=== PATIENT | female | born 1960 | race Caucasian/White ===

== ENCOUNTER 2019-12-26 20:23 | Inpatient (IN) | payer MEDICARE, MEDICAID ==
[~2019-12-26] VITALS: Ht 157.5 cm; Wt 98.0 kg
[2019-12-26] MEDS ORDERED: DIPH,PERTUSS(ACELL),TET VAC/PF 0.5 ML IM-VACC ONE ×2 (21:30→21:46)
[2019-12-26] MEDS ORDERED: SODIUM CHLORIDE FLUSH 10ML SYR IVF ONE (22:00)
[2019-12-26] MEDS ORDERED: AMPICILLIN/SULBACTAM 3 GM in SODIUM CHLORIDE 0.9% 100 ML IV ONE (22:00)
[2019-12-26 22:06] LABS: MEAN CORPUSCULAR HEMOGLOBIN 32.6 pg (27.0-34.8); MEAN CORPUSCULAR HGB CONC 33.6 g/dL (32.4-35.8); MEAN CORPUSCULAR VOLUME 97.3 fL (80-100); MEAN PLATELET VOLUME 9.5 fL (7.4-10.4); PLATELET COUNT 270 x10^3/uL (130-400); RED BLOOD COUNT 3.69 x10^6/uL (3.82-5.3); RED CELL DISTRIBUTION WIDTH 14.8 % (9.6-15.2)
[2019-12-26 22:16] LABS: ALANINE AMINOTRANSFERASE 18 U/L (12-78); ALBUMIN 3.3 g/dL (3.4-5.0); ANION GAP 6 mmol/L (5-15); CHLORIDE 107 mmol/L (98-107); CREATININE 0.89 mg/dL (0.55-1.02)
[2019-12-26] MEDS ORDERED: HYDROmorphone 1 MG/ML, 1ML INJ ONE (22:17)
[2019-12-26] MEDS ORDERED: ONDANSETRON 2MG/ML, 2ML ONE (22:17)
[2019-12-26 22:19] LABS: ALKALINE PHOSPHATASE 112 U/L (45-117); BILIRUBIN,TOTAL 0.4 mg/dL (0.2-1.0); TOTAL PROTEIN 7.3 g/dL (6.4-8.2)
[2019-12-26] MEDS ORDERED: ONDANSETRON 2MG/ML, 2ML IVPush ONE (22:30)
[2019-12-26] MEDS ORDERED: HYDROmorphone 1 MG/ML, 1ML INJ IV ONE (22:30)
[2019-12-26 22:31] LABS: BASOPHILS # (AUTO) 0.04 x10^3/uL (0-0.1); BASOPHILS % (AUTO) 0 % (0-1); EOSINOPHILS # (AUTO) 0.01 x10^3/uL (0-0.4); EOSINOPHILS % (AUTO) 0 % (1-7); LYMPHOCYTES # (AUTO) 2.32 x10^3/uL (1-3.4); LYMPHOCYTES % (AUTO) 13 % (22-44); MD SCAN; MONOCYTES # (AUTO) 1.35 x10^3/uL (0.2-0.8); MONOCYTES % (AUTO) 7 % (2-9); NEUTROPHILS # (AUTO) 14.65 x10^3/uL (1.8-6.8); NEUTROPHILS % (AUTO) 80 % (42-75)
--- NOTE | 2019-12-26 23:35 | NUR ---
Shantal Maynard, pts emergency contact - [phone]
[2019-12-26] MEDS ORDERED: OMNIPAQUE 350 MG/ML, 100ML BOTTLE ONE (23:44)
[2019-12-27] MEDS ORDERED: HYDROmorphone 1 MG/ML, 1ML INJ ONE (00:20)
[2019-12-27] MEDS ORDERED: HYDROmorphone 1 MG/ML, 1ML INJ IV ONE (00:30)
[2019-12-27] MEDS ORDERED: GABAPENTIN 300 MG CAPSULE PO PRN (01:30)
[2019-12-27] MEDS ORDERED: hydrALAzine 20 MG/ML, 1ML IVPush PRN (01:30)
[2019-12-27] MEDS ORDERED: ACETAMINOPHEN 325 MG TABLET PO PRN ×2 (01:30→07:30)
[2019-12-27] MEDS ORDERED: POTASSIUM CHLORIDE 20 MEQ TAB.ER.PRT PO ONE (01:30)
[2019-12-27] MEDS ORDERED: VANCOMYCIN 1,200 MG in SODIUM CHLORIDE 0.9% 250 ML IV ONE (01:30)
[2019-12-27] MEDS ORDERED: VANCOMYCIN PER PHARMACY MC PRN ×2 (01:30)
[2019-12-27] MEDS ORDERED: TRAZODONE 50MG TABLET PO PRN (01:30)
[2019-12-27] MEDS ORDERED: ONDANSETRON 2MG/ML, 2ML IVPush PRN ×2 (01:30→07:30)
--- NOTE | 2019-12-27 01:38 | NUR ---
Report called to farida flores to assume care upon transfer to [facility]
[2019-12-27 01:45] VITALS: BP 136/87
[2019-12-27] MEDS ORDERED: ACYC-114 PO (02:01)
[2019-12-27] MEDS ORDERED: ROSU40TA PO (02:01)
[2019-12-27] MEDS ORDERED: SERT100T PO (02:01)
[2019-12-27] MEDS ORDERED: CLON1TAB PO (02:01)
[2019-12-27] MEDS: morphine SULFATE 10 MG/ML, 1ML IVPush PRN ×4 (02:26→10:13)
[2019-12-27] MEDS ORDERED: PHARMACOKINETIC MONITORING MC PRN (02:30)
[2019-12-27] MEDS ORDERED: PHARMACOKINETIC CONSULTATION MC ONE (02:30)
[2019-12-27] MEDS: AMPICILLIN/SULBACTAM 3 GM in SODIUM CHLORIDE 0.9% 100 ML IV SCH ×4 (04:10→21:33)
[2019-12-27] MEDS: LACTATED RINGERS 1,000 ML IV SCH ×2 (04:44→21:35)
[2019-12-27 06:52] LABS: BASOPHILS # (AUTO) 0.06 x10^3/uL (0-0.1); BASOPHILS % (AUTO) 0 % (0-1); EOSINOPHILS # (AUTO) 0.08 x10^3/uL (0-0.4); EOSINOPHILS % (AUTO) 1 % (1-7); LYMPHOCYTES # (AUTO) 3.67 x10^3/uL (1-3.4); LYMPHOCYTES % (AUTO) 22 % (22-44); MD NO; MEAN CORPUSCULAR HEMOGLOBIN 32.8 pg (27.0-34.8); MEAN CORPUSCULAR HGB CONC 33.7 g/dL (32.4-35.8); MEAN CORPUSCULAR VOLUME 97.4 fL (80-100); MEAN PLATELET VOLUME 9.5 fL (7.4-10.4); MONOCYTES # (AUTO) 1.21 x10^3/uL (0.2-0.8); MONOCYTES % (AUTO) 7 % (2-9); NEUTROPHILS # (AUTO) 12.02 x10^3/uL (1.8-6.8); NEUTROPHILS % (AUTO) 71 % (42-75); PLATELET COUNT 244 x10^3/uL (130-400); RED CELL DISTRIBUTION WIDTH 15.3 % (9.6-15.2)
[2019-12-27 06:58] LABS: ANION GAP 5 mmol/L (5-15); CALCIUM 8.6 mg/dL (8.5-10.1); CHLORIDE 108 mmol/L (98-107); CREATININE 0.69 mg/dL (0.55-1.02)
[2019-12-27 07:13] VITALS: BP 110/67
[2019-12-27] MEDS ORDERED: OXYcodone 5 MG/5 ML ORAL.SOL UDC PO PRN (07:30)
[2019-12-27] MEDS ORDERED: hydrALAzine 20 MG/ML, 1ML IV PRN (07:30)
[2019-12-27] MEDS ORDERED: EPHEDRINE 50 MG/ML, 1ML IVPush PRN (07:30)
[2019-12-27] MEDS ORDERED: LABETALOL 5MG/ML, 20ML IV PRN (07:30)
[2019-12-27] MEDS ORDERED: PROMETHAZINE 25 MG/ML, 1ML IVPush PRN (07:30)
[2019-12-27] MEDS: SERTRALINE 100MG TABLET PO SCH ×2 (09:00→21:33)
[2019-12-27] MEDS: SENNA/DOCUSATE TABLET PO SCH (09:00)
[2019-12-27] MEDS: ACYCLOVIR 800 MG TABLET PO SCH ×2 (09:00→21:33)
[2019-12-27] MEDS ORDERED: MIDAZOLAM 1 MG/ML, 2ML ONE (10:14)
[2019-12-27] MEDS ORDERED: FENTANYL PF 250 MCG/5ML ONE (10:14)
[2019-12-27 14:00] VITALS: BP 93/68
[2019-12-27] MEDS ORDERED: EPHEDRINE 50 MG/ML, 1ML ONE (14:00)
[2019-12-27] MEDS ORDERED: KETOROLAC 30 MG/1 ML ONE (14:16)
[2019-12-27] MEDS ORDERED: LIDOCAINE-MPF 2% ,5ML ONE (14:16)
[2019-12-27] MEDS ORDERED: PROPOFOL 10 MG/ML, 20ML ONE (14:18)
[2019-12-27] MEDS ORDERED: DEXAMETHASONE 4 MG/ML, 1ML ONE (14:18)
[2019-12-27] MEDS ORDERED: ONDANSETRON 2MG/ML, 2ML ONE (14:18)
[2019-12-27] MEDS ORDERED: ACETAMINOPHEN 650 MG/20.3 ML UDC ONE (15:08)
[2019-12-27] MEDS ORDERED: OXYcodone 5 MG/5 ML ORAL.SOL UDC ONE (15:08)
[2019-12-27] MEDS ORDERED: HYDROmorphone 2 MG/ML, 1ML ONE (15:08)
[2019-12-27] MEDS ORDERED: FENTANYL PF 100 MCG/2ML ONE (15:08)
[2019-12-27] MEDS: FENTANYL PF 100 MCG/2ML IV PRN ×2 (15:20→15:30)
[2019-12-27] MEDS: HYDROmorphone 1 MG/ML, 1ML INJ IVPush PRN ×2 (15:25→15:56)
[2019-12-27] MEDS ORDERED: POTASSIUM CHLORIDE 20 MEQ TAB.ER.PRT PO SCH (17:00)
[2019-12-27] MEDS ORDERED: HYDROmorphone 1 MG/ML, 1ML INJ IV PRN (17:00)
[2019-12-27] MEDS: VANCOMYCIN PMX 1GM/200ML 200 ML IVPB SCH (17:53)
[2019-12-27] MEDS: NICOTINE 21 MG/24 HR PATCH.TD24 TD SCH (17:54)
[2019-12-27 20:04] VITALS: BP 94/55
[2019-12-27] MEDS: OXYcodone/APAP 10/325MG TABLET PO PRN (21:33)
[2019-12-27] MEDS: ATORVASTATIN 80 MG TABLET PO SCH (21:37)
[2019-12-28] VITALS (7 sets, daily range): BP systolic 92–109; BP diastolic 51–66
[2019-12-28] MEDS: OXYcodone/APAP 10/325MG TABLET PO PRN (02:37)
[2019-12-28] MEDS: AMPICILLIN/SULBACTAM 3 GM in SODIUM CHLORIDE 0.9% 100 ML IV SCH ×4 (04:07→23:34)
[2019-12-28] MEDS: morphine SULFATE 10 MG/ML, 1ML IVPush PRN (05:38)
[2019-12-28] MEDS: VANCOMYCIN PMX 1GM/200ML 200 ML IVPB SCH ×2 (05:38→22:02)
[2019-12-28 06:11] LABS: CHLORIDE 108 mmol/L (98-107)
[2019-12-28 06:20] LABS: BASOPHILS % (AUTO) 0 % (0-1); EOSINOPHILS % (AUTO) 0 % (1-7); LYMPHOCYTES # (AUTO) 1.36 x10^3/uL (1-3.4); LYMPHOCYTES % (AUTO) 8 % (22-44); MD NO; MEAN CORPUSCULAR HEMOGLOBIN 32.7 pg (27.0-34.8); MEAN CORPUSCULAR HGB CONC 33.2 g/dL (32.4-35.8); MEAN CORPUSCULAR VOLUME 98.4 fL (80-100); MEAN PLATELET VOLUME 9.7 fL (7.4-10.4); MONOCYTES # (AUTO) 0.92 x10^3/uL (0.2-0.8); MONOCYTES % (AUTO) 6 % (2-9); NEUTROPHILS # (AUTO) 14.26 x10^3/uL (1.8-6.8); NEUTROPHILS % (AUTO) 86 % (42-75); PLATELET COUNT 200 x10^3/uL (130-400); RED BLOOD COUNT 2.71 x10^6/uL (3.82-5.3); RED CELL DISTRIBUTION WIDTH 15.1 % (9.6-15.2)
[2019-12-28 06:22] LABS: ALANINE AMINOTRANSFERASE 21 U/L (12-78); ALBUMIN 2.6 g/dL (3.4-5.0); ALKALINE PHOSPHATASE 86 U/L (45-117); ANION GAP 5 mmol/L (5-15); BILIRUBIN,TOTAL 0.3 mg/dL (0.2-1.0); CALCIUM 8.1 mg/dL (8.5-10.1); CREATININE 0.64 mg/dL (0.55-1.02)
[2019-12-28] MEDS ORDERED: OXYcodone/APAP 10/325MG TABLET PO PRN (09:00)
[2019-12-28] MEDS: ACYCLOVIR 800 MG TABLET PO SCH ×2 (09:00→09:31)
[2019-12-28] MEDS: SENNA/DOCUSATE TABLET PO SCH (09:00)
[2019-12-28] MEDS: SERTRALINE 100MG TABLET PO SCH ×2 (09:31→20:43)
[2019-12-28] MEDS ORDERED: OXYcodone IR 5MG TABLET PO PRN (12:30)
[2019-12-28] MEDS ORDERED: OXYcodone 5 MG/5 ML ORAL.SOL UDC PO PRN (12:33)
[2019-12-28] MEDS ORDERED: OMEP40CA42 PO (13:43)
[2019-12-28] MEDS ORDERED: AMIT100T PO (13:43)
[2019-12-28] MEDS ORDERED: DICY10CA3 PO (13:43)
[2019-12-28] MEDS ORDERED: CLON1TAB PO (13:43)
[2019-12-28] MEDS ORDERED: FLUT12AE INH (13:43)
[2019-12-28] MEDS: ACETAMINOPHEN 650 MG/20.3 ML UDC PO PRN (14:02)
[2019-12-28] MEDS: OXYcodone 5 MG/5 ML ORAL.SOL UDC PO PRN ×2 (16:05→22:07)
[2019-12-28] MEDS: NICOTINE 21 MG/24 HR PATCH.TD24 TD SCH (18:30)
[2019-12-28] MEDS: ATORVASTATIN 80 MG TABLET PO SCH (20:43)
[2019-12-28] MEDS: AMITRIPTYLINE 50 MG TABLET PO SCH (20:44)
[2019-12-28] MEDS: FLUTICASONE NASAL SPRAY 16GM NAS SCH (20:44)
[2019-12-28] MEDS: OMEPRAZOLE 20 MG CAPSULE.DR PO SCH (20:44)
[2019-12-28] MEDS: ACYCLOVIR 200 MG/5 ML ORAL SUSP PO SCH (20:44)
[2019-12-29] VITALS (9 sets, daily range): BP systolic 105–138; BP diastolic 62–80
[2019-12-29] MEDS: AMPICILLIN/SULBACTAM 3 GM in SODIUM CHLORIDE 0.9% 100 ML IV SCH ×3 (05:12→18:23)
[2019-12-29] MEDS: OXYcodone 5 MG/5 ML ORAL.SOL UDC PO PRN ×3 (05:43→20:53)
[2019-12-29 05:56] LABS: HCT (SEDRATE) 24.3 % (34.6-47.8)
[2019-12-29 06:08] LABS: CHLORIDE 110 mmol/L (98-107)
[2019-12-29 06:10] LABS: BASOPHILS # (AUTO) 0.04 x10^3/uL (0-0.1); BASOPHILS % (AUTO) 0 % (0-1); EOSINOPHILS # (AUTO) 0.07 x10^3/uL (0-0.4); EOSINOPHILS % (AUTO) 1 % (1-7); LYMPHOCYTES # (AUTO) 3.11 x10^3/uL (1-3.4); LYMPHOCYTES % (AUTO) 25 % (22-44); MD NO; MEAN CORPUSCULAR HEMOGLOBIN 32.9 pg (27.0-34.8); MEAN CORPUSCULAR HGB CONC 33.6 g/dL (32.4-35.8); MEAN CORPUSCULAR VOLUME 97.8 fL (80-100); MEAN PLATELET VOLUME 9.5 fL (7.4-10.4); MONOCYTES # (AUTO) 0.77 x10^3/uL (0.2-0.8); MONOCYTES % (AUTO) 6 % (2-9); NEUTROPHILS # (AUTO) 8.73 x10^3/uL (1.8-6.8); NEUTROPHILS % (AUTO) 69 % (42-75); PLATELET COUNT 211 x10^3/uL (130-400); RED BLOOD COUNT 2.47 x10^6/uL (3.82-5.3)
[2019-12-29 06:37] LABS: ANION GAP 5 mmol/L (5-15); CREATININE 0.57 mg/dL (0.55-1.02)
[2019-12-29] MEDS: SENNA/DOCUSATE TABLET PO SCH (07:42)
[2019-12-29] MEDS: ACETAMINOPHEN 650 MG/20.3 ML UDC PO PRN ×2 (07:55→18:54)
[2019-12-29] MEDS: FLUTICASONE NASAL SPRAY 16GM NAS SCH ×2 (07:55→20:49)
[2019-12-29] MEDS: SERTRALINE 100MG TABLET PO SCH ×2 (07:56→20:49)
[2019-12-29] MEDS: ACYCLOVIR 200 MG/5 ML ORAL SUSP PO SCH ×2 (07:56→20:48)
[2019-12-29] MEDS: OMEPRAZOLE 20 MG CAPSULE.DR PO SCH ×2 (07:56→20:49)
[2019-12-29] MEDS: VANCOMYCIN PMX 1GM/200ML 200 ML IVPB SCH ×2 (10:12→22:29)
--- NOTE | 2019-12-29 17:14 | NUR ---
MORENO NASSAR Fall Risk Medications present and NOT receiving anticoagulants. Signed: 12/29/19 at 1716 by ROGELIO CROWE
[2019-12-29] MEDS: NICOTINE 21 MG/24 HR PATCH.TD24 TD SCH (18:23)
[2019-12-29] MEDS: AMITRIPTYLINE 50 MG TABLET PO SCH (20:49)
[2019-12-29] MEDS: ATORVASTATIN 80 MG TABLET PO SCH (21:10)
[2019-12-30 00:33] VITALS: BP 105/66
[2019-12-30] MEDS: AMPICILLIN/SULBACTAM 3 GM in SODIUM CHLORIDE 0.9% 100 ML IV SCH ×4 (00:34→15:14)
[2019-12-30] MEDS: OXYcodone 5 MG/5 ML ORAL.SOL UDC PO PRN (01:46)
[2019-12-30] MEDS: SENNA/DOCUSATE TABLET PO SCH (07:11)
[2019-12-30] MEDS: FLUTICASONE NASAL SPRAY 16GM NAS SCH (07:11)
[2019-12-30 07:45] VITALS: BP 101/66
[2019-12-30] MEDS: SERTRALINE 100MG TABLET PO SCH (07:51)
[2019-12-30] MEDS: ACYCLOVIR 200 MG/5 ML ORAL SUSP PO SCH (07:51)
[2019-12-30] MEDS: OMEPRAZOLE 20 MG CAPSULE.DR PO SCH (07:51)
[2019-12-30] MEDS: VANCOMYCIN PMX 1GM/200ML 200 ML IVPB SCH ×3 (10:30→14:01)
[2019-12-30 14:02] VITALS: BP 123/77
[2019-12-30] MEDS: NICOTINE 21 MG/24 HR PATCH.TD24 TD SCH (17:08)
== END 2019-12-30 17:50 | disposition home or self-care (01) | DRG 854 ==
LOC: ED 22:14 → EDIP 12-27 01:30 → 3N 12-27 01:54
PROVIDERS: ADMIT Family Medicine; ATTEND Internal Medicine
PROC: 0JBJ0ZZ Excision of Right Hand Subcutaneous Tissue and Fascia, Open Approach (ICD-10-PCS; 2019-12-27)
PROC: 0J9G0ZZ Drainage of Right Lower Arm Subcutaneous Tissue and Fascia, Open Approach (ICD-10-PCS; 2019-12-27)
PROC: 0X9J0ZZ Drainage of Right Hand, Open Approach (ICD-10-PCS; 2019-12-27)
PROC: 0R9 Upper Joints, Drainage (ICD-10-PCS; principal; 2019-12-27 08:00)
DX: A41.9 Sepsis, unspecified organism (principal); L03.113 Cellulitis of right upper limb; L02.413 Cutaneous abscess of right upper limb; W54.0XXA Bitten by dog, initial encounter; E87.6 Hypokalemia; F12.90 Cannabis use, unspecified, uncomplicated; F17.210 Nicotine dependence, cigarettes, uncomplicated; F31.9 Bipolar disorder, unspecified; F43.10 Post-traumatic stress disorder, unspecified; J41.0 Simple chronic bronchitis; L03.012 Cellulitis of left finger; S41.151A Open bite of right upper arm, initial encounter; S51.851A Open bite of right forearm, initial encounter; S61.451A Open bite of right hand, initial encounter; G56.03 Carpal tunnel syndrome, bilateral upper limbs; Z20.828 Contact with and (suspected) exposure to other viral communicable diseases; S61.539A Puncture wound without foreign body of unspecified wrist, initial encounter; Z80.0 Family history of malignant neoplasm of digestive organs; Z83.3 Family history of diabetes mellitus; Z86.61 Personal history of infections of the central nervous system; Z88.6 Allergy status to analgesic agent; Z90.49 Acquired absence of other specified parts of digestive tract; Z98.890 Other specified postprocedural states; Z83.49 Family history of other endocrine, nutritional and metabolic diseases; Y93.89 Activity, other specified; Y92.89 Other specified places as the place of occurrence of the external cause; Y99.8 Other external cause status
CPT/HCPCS: 36415; 70450; 80048; 80053; 80202; 83036; 83735; 85025; 85651; 86140; 87040; 87070; 87075; 87076; 87077; 87205; 87635; 90471; 90715; 96374; 96375; 99285; G0378; J0295; J1100; J1170; J1885; J2250; J2405; J2704; J3010; J3370; Q9967; J2270; J7050; J7120